=== PATIENT | female | born 1955 | race Caucasian/White ===

== ENCOUNTER 2021-09-14 06:35 | Emergency (ER) | payer MEDICARE, SELFPAY ==
[2021-09-14] VITALS (7 sets, daily range): BP systolic 116–143; BP diastolic 61–77; PULSE 70–127; RESP 16–27; TEMP 37; O2SAT 93–96; BMI 46.8
--- NOTE | 2021-09-14 06:44 | DI.RAD.S_ITS ---
PROCEDURE: XR CHEST 1V INDICATIONS: chest pain TECHNIQUE: One view of the chest was acquired. COMPARISON: None. FINDINGS: Surgical changes and devices: None. Lungs and pleura: Lungs are clear. No pleural effusions or pneumothorax. Mediastinum: Mediastinal contours appear normal. Heart size is normal. Bones and chest wall: No suspicious bony lesions. Overlying soft tissues appear unremarkable. IMPRESSION: No acute cardiopulmonary abnormality. There is no significant discrepancy when compared to the overnight preliminary report. Dictated by: Eyad Marino M.D. on 09/14/2021 at 7:45 Approved by: Eyad Marino M.D. on 09/14/2021 at 7:47
--- NOTE | 2021-09-14 06:49 | ED_ITS ---
HPI - General Adult <Prisca Newton MD - Last Filed: 10/07/21 18:09> General Chief complaint: Arrhythmia/Palpitations Stated complaint: Afib Time Seen by Provider: 09/14/21 06:40 History of Present Illness HPI narrative: 66-year-old woman with a history of a hypothyroidism, hypertension, depression and a single episode of atrial fibrillation a number of years ago currently on aspirin woke up this evening with palpitations and a fluttery feeling in her chest that was quite frightening but not actually painful. She does not describe pain, diaphoresis or dyspnea. She still is somewhat anxious with a fluttery feeling. She states that she has not recently had fever, cough, chills, recent COVID infection, change to headaches, lower extremity edema, abdo rito pain, vomiting or diarrhea. Related Data Allergies Allergy/AdvReac Type Severity Reaction Status Date / Time adhesive tape Allergy Verified 09/14/21 07:00 latex Allergy Verified 09/14/21 07:00 oxycodone [From OxyContin] Allergy Verified 09/14/21 07:00 Penicillins Allergy Verified 09/14/21 07:00 Review of Systems <Prisca Newton MD - Last Filed: 10/07/21 18:09> Review of Systems Narrative: Remainder of complete review of systems is otherwise unremarkable except for that included in the HPI. Patient History <Prisca Newton MD - Last Filed: 10/07/21 18:09> Medical History (Updated 09/29/21 @ 00:00 by ) Depression Hypertension Paroxysmal A-fib Social History Smoking Status: Former smoker Exam <Prisca Newton MD - Last Filed: 10/07/21 18:09> Initial Vital Signs Initial Vital Signs: Vital Signs Pulse Rate 110 H 09/14/21 06:39 Respiratory Rate 16 09/14/21 06:39 Blood Pressure 143/77 H 09/14/21 06:39 Pulse Oximetry 96 09/14/21 06:39 General: Healthy appearing, anxious but in no acute distress. Able to give a complete and coherent history. Well-nourished well-developed HEENT: Moist mucous membranes, normal sclera with reactive pupils, Neck: No JVD, supple Respiratory: Lungs are clear to auscultation, no wheezing no rales no rhonchi. Full and symmetrical air movement Cardiac: Rapid and irregular but no murmurs no bruits Abdomen: Soft, nontender, good bowel tones, no flank pain Skin: Warm and dry, no rashes Neurologic: Grossly neurologically intact with no obvious asymmetries or abnormalities Extremities: No trauma, well perfused, no lower extremity edema Psych: Cooperative, appropriate insight and affect <Evita Oglesby DO - Last Filed: 09/14/21 10:16> Initial Vital Signs Initial Vital Signs: Vital Signs Pulse Rate 110 H 09/14/21 06:39 Respiratory Rate 16 09/14/21 06:39 Blood Pressure 143/77 H 09/14/21 06:39 Pulse Oximetry 96 09/14/21 06:39 Scores <Prisca Newton MD - Last Filed: 10/07/21 18:09> CHADS-VASc CHADS-VASc Score: 2 <Evita Oglesby DO - Last Filed: 09/14/21 10:16> CHADS-VASc Congestive heart failure: no Hypertension: no Age 75 years or older: no Diabetes mellitus: no Stroke, TIA, or TE: no Vascular disease: no Age 65 to 74 years: yes Sex category (female): Female CHADS-VASc Score: 2 Course <Prisca Newton MD - Last Filed: 10/07/21 18:09> Orders Ordered: Discontinued Medications Diltiazem HCl (Diltiazem 5 Mg/Ml Sdv) 20 mg IV NOW ONE Stop: 09/14/21 06:47 Last Admin: 09/14/21 08:38 Dose: Not Given Documented By: IVAN DILTIAZEM (Diltiazem 125 Mg/125 Ml-D5w) 125 mg in 125 mls @ 5 mls/hr IV TITRATE [facility]; Protocol Last Admin: 09/14/21 08:38 Dose: Not Given Documented By: IVAN neither med was given Vital Signs Vital signs: Vital Signs - 8 hr 09/14/21 07:00 09/14/21 06:39 09/14/21 06:39 Temperature 98.6 F Pulse Rate 127 H 110 H Respiratory Rate 23 16 Blood Pressure 143/77 H 143/77 H Pulse Oximetry 94 96 Oxygen Delivery Method Room Air 09/14/21 07:23 09/14/21 07:30 09/14/21 07:31 Temperature Pulse Rate 73 71 Respiratory Rate Blood Pressure 119/61 Pulse Oximetry 95 93 Oxygen Delivery Method 09/14/21 07:31 09/14/21 08:00 09/14/21 08:00 Temperature Pulse Rate 72 70 Respiratory Rate 21 Blood Pressure 116/68 Pulse Oximetry 95 Oxygen Delivery Method 09/14/21 08:30 Temperature Pulse Rate 72 Respiratory Rate 27 H Blood Pressure Pulse Oximetry Oxygen Delivery Method <Evita Oglesby DO - Last Filed: 09/14/21 10:16> Orders Ordered: Discontinued Medications Diltiazem HCl (Diltiazem 5 Mg/Ml Sdv) 20 mg IV NOW ONE Stop: 09/14/21 06:47 Last Admin: 09/14/21 08:38 Dose: Not Given Documented By: IVAN DILTIAZEM (Diltiazem 125 Mg/125 Ml-D5w) 125 mg in 125 mls @ 5 mls/hr IV TITRATE [facility]; Protocol Last Admin: 09/14/21 08:38 Dose: Not Given Documented By: IVAN Vital Signs Vital signs: Vital Signs - 8 hr 09/14/21 07:00 09/14/21 06:39 09/14/21 06:39 Temperature 98.6 F Pulse Rate 127 H 110 H Respiratory Rate 23 16 Blood Pressure 143/77 H 143/77 H Pulse Oximetry 94 96 Oxygen Delivery Method Room Air 09/14/21 07:23 09/14/21 07:30 09/14/21 07:31 Temperature Pulse Rate 73 71 Respiratory Rate Blood Pressure 119/61 Pulse Oximetry 95 93 Oxygen Delivery Method 09/14/21 07:31 09/14/21 08:00 09/14/21 08:00 Temperature Pulse Rate 72 70 Respiratory Rate 21 Blood Pressure 116/68 Pulse Oximetry 95 Oxygen Delivery Method 09/14/21 08:30 Temperature Pulse Rate 72 Respiratory Rate 27 H Blood Pressure Pulse Oximetry Oxygen Delivery Method Medical Decision Making <Prisca Newton MD - Last Filed: 10/07/21 18:09> Lab Data Result diagrams: 09/14/21 06:45 09/14/21 06:45 Labs: Lab Results 09/14/21 09/14/21 09/14/21 Range/Units 06:44 06:45 06:45 WBC 7.8 (4.5-11.0) X10^3/uL RBC 4.85 (4.0-5.2) X10^6/uL Hgb 14.4 (12.0-16.0) g/dL Hct 42.8 (36-46) % MCV 88.1 (80-100) fL MCH 29.7 (26-34) PG MCHC 33.7 (30-36) % RDW 13.9 (11.6-14.8) % Plt Count 248 (150-400) X10^3/uL Neut % (Auto) 68.5 (50-75) % Lymph % (Auto) 18.8 L (25-40) % [place] % (Auto) 5.6 (3-14) % Eos % (Auto) 6.3 H (2-4) % Baso % (Auto) 0.8 (0-2) % Neut # (Auto) 5300 (6859-9616) /uL Lymph # (Auto) 1500 (2879-2032) /uL [place] # (Auto) 400 (0-900) /uL Eos # (Auto) 500 H (0-450) /uL Baso # (Auto) 100 (0-100) /uL D-Dimer (<230) ng/mL Sodium 140 (137-145) mmol/L Potassium 3.4 (3.4-5.1) mmol/L Chloride 104 (98-107) mmol/L Carbon Dioxide 26 (22-32) mmol/L BUN 18 H (7-17) mg/dL Creatinine 0.68 (0.52-1.04) mg/dL Estimated GFR > 60 (>60) mL/min BUN/Creatinine Ratio 26.5 H (6-22) Glucose 147 H (80-110) mg/dL Calcium 9.5 (8.4-10.2) mg/dL Magnesium (1.6-2.3) mg/dL Total Bilirubin 0.4 (0.2-1.3) mg/dL AST 27 (14-36) IU/L ALT 18 (<35) IU/L Alkaline Phosphatase 61 (38-126) U/L Troponin I (0.01-0.034) ng/mL NT-Pro-B Natriuret Pep (<125) pg/mL Total Protein 6.9 (6.3-8.2) g/dL Albumin 4.1 (3.5-5.0) g/dL Globulin 2.8 (1.7-4.1) g/dL Albumin/Globulin Ratio 1.5 (1.0-2.8) TSH (0.47-4.68) uIU/mL Urine Color Urine Appearance Urine pH (4.5-8.0) Ur Specific [place] (1.000-1.035) Urine Protein (Negative) Urine Glucose (UA) (Negative) g/dL Urine Ketones (NEGATIVE) Urine Occult Blood (Negative) Urine Nitrate (Negative) Urine Bilirubin (NEGATIVE) Urine Urobilinogen (0.2) E.U./dL Ur Leukocyte Esterase (NEGATIVE) Urine RBC (0-5/HPF) Urine WBC (0-5/HPF) Ur Squamous Epith Cells (0-5/HPF) Urine Bacteria (None) Ur Culture Indicated? SARS-CoV-2 (PCR) Negative (Negative) 09/14/21 09/14/21 09/14/21 Range/Units 06:45 06:45 06:45 WBC (4.5-11.0) X10^3/uL RBC (4.0-5.2) X10^6/uL Hgb (12.0-16.0) g/dL Hct (36-46) % MCV (80-100) fL MCH (26-34) PG MCHC (30-36) % RDW (11.6-14.8) % Plt Count (150-400) X10^3/uL Neut % (Auto) (50-75) % Lymph % (Auto) (25-40) % [place] % (Auto) (3-14) % Eos % (Auto) (2-4) % Baso % (Auto) (0-2) % Neut # (Auto) (3701-0722) /uL Lymph # (Auto) (0333-5252) /uL [place] # (Auto) (0-900) /uL Eos # (Auto) (0-450) /uL Baso # (Auto) (0-100) /uL D-Dimer 217 (<230) ng/mL Sodium (137-145) mmol/L Potassium (3.4-5.1) mmol/L Chloride (98-107) mmol/L Carbon Dioxide (22-32) mmol/L BUN (7-17) mg/dL Creatinine (0.52-1.04) mg/dL Estimated GFR (>60) mL/min BUN/Creatinine Ratio (6-22) Glucose (80-110) mg/dL Calcium (8.4-10.2) mg/dL Magnesium 1.9 (1.6-2.3) mg/dL Total Bilirubin (0.2-1.3) mg/dL AST (14-36) IU/L ALT (<35) IU/L Alkaline Phosphatase (38-126) U/L Troponin I < 0.012 (0.01-0.034) ng/mL NT-Pro-B Natriuret Pep 89 (<125) pg/mL Total Protein (6.3-8.2) g/dL Albumin (3.5-5.0) g/dL Globulin (1.7-4.1) g/dL Albumin/Globulin Ratio (1.0-2.8) TSH 15.0 H (0.47-4.68) uIU/mL Urine Color Urine Appearance Urine pH (4.5-8.0) Ur Specific [place] (1.000-1.035) Urine Protein (Negative) Urine Glucose (UA) (Negative) g/dL Urine Ketones (NEGATIVE) Urine Occult Blood (Negative) Urine Nitrate (Negative) Urine Bilirubin (NEGATIVE) Urine Urobilinogen (0.2) E.U./dL Ur Leukocyte Esterase (NEGATIVE) Urine RBC (0-5/HPF) Urine WBC (0-5/HPF) Ur Squamous Epith Cells (0-5/HPF) Urine Bacteria (None) Ur Culture Indicated? SARS-CoV-2 (PCR) (Negative) 09/14/21 Range/Units 07:30 WBC (4.5-11.0) X10^3/uL RBC (4.0-5.2) X10^6/uL Hgb (12.0-16.0) g/dL Hct (36-46) % MCV (80-100) fL MCH (26-34) PG MCHC (30-36) % RDW (11.6-14.8) % Plt Count (150-400) X10^3/uL Neut % (Auto) (50-75) % Lymph % (Auto) (25-40) % [place] % (Auto) (3-14) % Eos % (Auto) (2-4) % Baso % (Auto) (0-2) % Neut # (Auto) (8719-9646) /uL Lymph # (Auto) (3133-9565) /uL [place] # (Auto) (0-900) /uL Eos # (Auto) (0-450) /uL Baso # (Auto) (0-100) /uL D-Dimer (<230) ng/mL Sodium (137-145) mmol/L Potassium (3.4-5.1) mmol/L Chloride (98-107) mmol/L Carbon Dioxide (22-32) mmol/L BUN (7-17) mg/dL Creatinine (0.52-1.04) mg/dL Estimated GFR (>60) mL/min BUN/Creatinine Ratio (6-22) Glucose (80-110) mg/dL Calcium (8.4-10.2) mg/dL Magnesium (1.6-2.3) mg/dL Total Bilirubin (0.2-1.3) mg/dL AST (14-36) IU/L ALT (<35) IU/L Alkaline Phosphatase (38-126) U/L Troponin I (0.01-0.034) ng/mL NT-Pro-B Natriuret Pep (<125) pg/mL Total Protein (6.3-8.2) g/dL Albumin (3.5-5.0) g/dL Globulin (1.7-4.1) g/dL Albumin/Globulin Ratio (1.0-2.8) TSH (0.47-4.68) uIU/mL Urine Color Yellow Urine Appearance Clear Urine pH 6.0 (4.5-8.0) Ur Specific [place] <=1.005 (1.000-1.035) Urine Protein Negative (Negative) Urine Glucose (UA) Negative (Negative) g/dL Urine Ketones Negative (NEGATIVE) Urine Occult Blood 3+ H (Negative) Urine Nitrate Negative (Negative) Urine Bilirubin Negative (NEGATIVE) Urine Urobilinogen 0.2 (0.2) E.U./dL Ur Leukocyte Esterase Trace H (NEGATIVE) Urine RBC 1-5/hpf (0-5/HPF) Urine WBC None seen (0-5/HPF) Ur Squamous Epith Cells 1-5 /hpf (0-5/HPF) Urine Bacteria None seen (None) Ur Culture Indicated? Specimen cultured SARS-CoV-2 (PCR) (Negative) ECG Data Interpretation: Atrial fibrillation with rapid ventricular response at a rate of 127 ST depression laterally Leftward axis <Evita Oglesby, DO - Last Filed: 09/14/21 10:16> Lab Data Labs: Lab Results 09/14/21 09/14/21 09/14/21 Range/Units 06:44 06:45 06:45 WBC 7.8 (4.5-11.0) X10^3/uL RBC 4.85 (4.0-5.2) X10^6/uL Hgb 14.4 (12.0-16.0) g/dL Hct 42.8 (36-46) % MCV 88.1 (80-100) fL MCH 29.7 (26-34) PG MCHC 33.7 (30-36) % RDW 13.9 (11.6-14.8) % Plt Count 248 (150-400) X10^3/uL Neut % (Auto) 68.5 (50-75) % Lymph % (Auto) 18.8 L (25-40) % [place] % (Auto) 5.6 (3-14) % Eos % (Auto) 6.3 H (2-4) % Baso % (Auto) 0.8 (0-2) % Neut # (Auto) 5300 (1082-9786) /uL Lymph # (Auto) 1500 (7582-2673) /uL [place] # (Auto) 400 (0-900) /uL Eos # (Auto) 500 H (0-450) /uL Baso # (Auto) 100 (0-100) /uL D-Dimer (<230) ng/mL Sodium 140 (137-145) mmol/L Potassium 3.4 (3.4-5.1) mmol/L Chloride 104 (98-107) mmol/L Carbon Dioxide 26 (22-32) mmol/L BUN 18 H (7-17) mg/dL Creatinine 0.68 (0.52-1.04) mg/dL Estimated GFR > 60 (>60) mL/min BUN/Creatinine Ratio 26.5 H (6-22) Glucose 147 H (80-110) mg/dL Calcium 9.5 (8.4-10.2) mg/dL Magnesium (1.6-2.3) mg/dL Total Bilirubin 0.4 (0.2-1.3) mg/dL AST 27 (14-36) IU/L ALT 18 (<35) IU/L Alkaline Phosphatase 61 (38-126) U/L Troponin I (0.01-0.034) ng/mL NT-Pro-B Natriuret Pep (<125) pg/mL Total Protein 6.9 (6.3-8.2) g/dL Albumin 4.1 (3.5-5.0) g/dL Globulin 2.8 (1.7-4.1) g/dL Albumin/Globulin Ratio 1.5 (1.0-2.8) TSH (0.47-4.68) uIU/mL Urine Color Urine Appearance Urine pH (4.5-8.0) Ur Specific [place] (1.000-1.035) Urine Protein (Negative) Urine Glucose (UA) (Negative) g/dL Urine Ketones (NEGATIVE) Urine Occult Blood (Negative) Urine Nitrate (Negative) Urine Bilirubin (NEGATIVE) Urine Urobilinogen (0.2) E.U./dL Ur Leukocyte Esterase (NEGATIVE) Urine RBC (0-5/HPF) Urine WBC (0-5/HPF) Ur Squamous Epith Cells (0-5/HPF) Urine Bacteria (None) Ur Culture Indicated? SARS-CoV-2 (PCR) Negative (Negative) 09/14/21 09/14/21 09/14/21 Range/Units 06:45 06:45 06:45 WBC (4.5-11.0) X10^3/uL RBC (4.0-5.2) X10^6/uL Hgb (12.0-16.0) g/dL Hct (36-46) % MCV (80-100) fL MCH (26-34) PG MCHC (30-36) % RDW (11.6-14.8) % Plt Count (150-400) X10^3/uL Neut % (Auto) (50-75) % Lymph % (Auto) (25-40) % [place] % (Auto) (3-14) % Eos % (Auto) (2-4) % Baso % (Auto) (0-2) % Neut # (Auto) (9413-4175) /uL Lymph # (Auto) (0289-1877) /uL [place] # (Auto) (0-900) /uL Eos # (Auto) (0-450) /uL Baso # (Auto) (0-100) /uL D-Dimer 217 (<230) ng/mL Sodium (137-145) mmol/L Potassium (3.4-5.1) mmol/L Chloride (98-107) mmol/L Carbon Dioxide (22-32) mmol/L BUN (7-17) mg/dL Creatinine (0.52-1.04) mg/dL Estimated GFR (>60) mL/min BUN/Creatinine Ratio (6-22) Glucose (80-110) mg/dL Calcium (8.4-10.2) mg/dL Magnesium 1.9 (1.6-2.3) mg/dL Total Bilirubin (0.2-1.3) mg/dL AST (14-36) IU/L ALT (<35) IU/L Alkaline Phosphatase (38-126) U/L Troponin I < 0.012 (0.01-0.034) ng/mL NT-Pro-B Natriuret Pep 89 (<125) pg/mL Total Protein (6.3-8.2) g/dL Albumin (3.5-5.0) g/dL Globulin (1.7-4.1) g/dL Albumin/Globulin Ratio (1.0-2.8) TSH 15.0 H (0.47-4.68) uIU/mL Urine Color Urine Appearance Urine pH (4.5-8.0) Ur Specific [place] (1.000-1.035) Urine Protein (Negative) Urine Glucose (UA) (Negative) g/dL Urine Ketones (NEGATIVE) Urine Occult Blood (Negative) Urine Nitrate (Negative) Urine Bilirubin (NEGATIVE) Urine Urobilinogen (0.2) E.U./dL Ur Leukocyte Esterase (NEGATIVE) Urine RBC (0-5/HPF) Urine WBC (0-5/HPF) Ur Squamous Epith Cells (0-5/HPF) Urine Bacteria (None) Ur Culture Indicated? SARS-CoV-2 (PCR) (Negative) 09/14/21 Range/Units 07:30 WBC (4.5-11.0) X10^3/uL RBC (4.0-5.2) X10^6/uL Hgb (12.0-16.0) g/dL Hct (36-46) % MCV (80-100) fL MCH (26-34) PG MCHC (30-36) % RDW (11.6-14.8) % Plt Count (150-400) X10^3/uL Neut % (Auto) (50-75) % Lymph % (Auto) (25-40) % [place] % (Auto) (3-14) % Eos % (Auto) (2-4) % Baso % (Auto) (0-2) % Neut # (Auto) (4204-1946) /uL Lymph # (Auto) (6147-6527) /uL [place] # (Auto) (0-900) /uL Eos # (Auto) (0-450) /uL Baso # (Auto) (0-100) /uL D-Dimer (<230) ng/mL Sodium (137-145) mmol/L Potassium (3.4-5.1) mmol/L Chloride (98-107) mmol/L Carbon Dioxide (22-32) mmol/L BUN (7-17) mg/dL Creatinine (0.52-1.04) mg/dL Estimated GFR (>60) mL/min BUN/Creatinine Ratio (6-22) Glucose (80-110) mg/dL Calcium (8.4-10.2) mg/dL Magnesium (1.6-2.3) mg/dL Total Bilirubin (0.2-1.3) mg/dL AST (14-36) IU/L ALT (<35) IU/L Alkaline Phosphatase (38-126) U/L Troponin I (0.01-0.034) ng/mL NT-Pro-B Natriuret Pep (<125) pg/mL Total Protein (6.3-8.2) g/dL Albumin (3.5-5.0) g/dL Globulin (1.7-4.1) g/dL Albumin/Globulin Ratio (1.0-2.8) TSH (0.47-4.68) uIU/mL Urine Color Yellow Urine Appearance Clear Urine pH 6.0 (4.5-8.0) Ur Specific [place] <=1.005 (1.000-1.035) Urine Protein Negative (Negative) Urine Glucose (UA) Negative (Negative) g/dL Urine Ketones Negative (NEGATIVE) Urine Occult Blood 3+ H (Negative) Urine Nitrate Negative (Negative) Urine Bilirubin Negative (NEGATIVE) Urine Urobilinogen 0.2 (0.2) E.U./dL Ur Leukocyte Esterase Trace H (NEGATIVE) Urine RBC 1-5/hpf (0-5/HPF) Urine WBC None seen (0-5/HPF) Ur Squamous Epith Cells 1-5 /hpf (0-5/HPF) Urine Bacteria None seen (None) Ur Culture Indicated? Specimen cultured SARS-CoV-2 (PCR) (Negative) Imaging Data Chest x-ray: Radiologist's Impression: XRay Report Signed Patient: Marleny Coombs MR#: [id number] : 1955 Acct:[id number] Age/Sex: 66 / F Date of Service: 09/14/21 Loc: ED Accession Number: [id number] ?? Procedure: XR chest 1V Ordering Provider: Prisca Newton MD PROCEDURE:? XR CHEST 1V ? INDICATIONS:? chest pain ? TECHNIQUE:? One view of the chest was acquired.? ? COMPARISON:? None. ? FINDINGS:? ? Surgical changes and devices:? None.? ? Lungs and pleura:? Lungs are clear.? No pleural effusions or pneumothorax.? ? Mediastinum:? Mediastinal contours appear normal.? Heart size is normal.? ? Bones and chest wall:? No suspicious bony lesions.? Overlying soft tissues appea r unremarkable.? ? IMPRESSION:? No acute cardiopulmonary abnormality. ? There is no significant discrepancy when compared to the overnight preliminary report. ? ? Dictated by: Eyad Marino M.D. on 09/14/2021 at 7:45 ? ? ECG Data Interpretation: Atrial fibrillation with rapid ventricular response at a rate of 127 ST depression laterally Leftward axis EKG 2. Normal sinus rhythm rate 70 FL interval 220 QRS [address] changes no T-wave inversions MDM Narrative Medical decision making narrative: Patient was given diltiazem by EMS. She spontaneously converted here in the emergency department. She says she feels much better. Sounds as though she has some paroxysmal atrial fibrillation she takes aspirin daily. TSH is found to be 15. She says she had a thyroidectomy many years ago. This probably can be addressed with her primary care provider. At this time no need for any further workup in the emergency department. I recommend continuing to take aspirin Discharge Plan Departure Patient Disposition: Home Clinical Impression: AF (paroxysmal atrial fibrillation) Instructions: DI for Atrial Fibrillation Activity Restrictions/Additional Instructions: *You have been diagnosed with paroxysmal atrial fibrillation *What to do: At this time please continue to take aspirin it will help prevent stroke. You may need to have evaluation by Cardiology. Fortunately his self converted today. Please return to the emergency department if you should have any chest pain or palpitations. You also need to have her thyroid medication adjusted. Your TSH today is 15 *Continue to take medications as directed Aspirin 81 mg daily *Follow up with your primary care provider in 2-3 days or call [phone] *Return to ER if you should have increasing palpitations chest pain shortness of breath or any new, worsening or concerning symptoms Referrals: Ron Blanton MD [Primary Care Provider] - Visit Report Forms: Patient Portal/API
[2021-09-14 07:00] LABS: Add Manual Diff / Slide Review NO; Basophils Absolute Auto 100 /uL (0-100); Basophils Percent Auto 0.8 % (0-2); Eosinophils Absolute Auto 500 /uL (0-450); Eosinophils Percent Auto 6.3 % (2-4); Hematocrit 42.8 % (36-46); Hemoglobin 14.4 g/dL (12.0-16.0); Lymphocytes Absolute Auto 1500 /uL (1100-4500); Lymphocytes Percent Auto 18.8 % (25-40); Mean Corpuscular HGB Conc 33.7 % (30-36); Mean Corpuscular Hemoglobin 29.7 PG (26-34); Mean Corpuscular Volume 88.1 fL (80-100); Monocytes Absolute Auto 400 /uL (0-900); Monocytes Percent Auto 5.6 % (3-14); Neutrophils Absolute Auto 5300 /uL (1500-7000); Neutrophils Percent Auto 68.5 % (50-75); Platelet Count 248 X10^3/uL (150-400); Red Blood Cell Count 4.85 X10^6/uL (4.0-5.2); Red Cell Distribution Width 13.9 % (11.6-14.8); White Blood Cell Count 7.8 X10^3/uL (4.5-11.0)
[2021-09-14 07:24] LABS: Magnesium 1.9 mg/dL (1.6-2.3)
[2021-09-14 07:25] LABS: Alanine Aminotransferase 18 IU/L (<35); Albumin 4.1 g/dL (3.5-5.0); Albumin Globulin Ratio 1.5 (1.0-2.8); Alkaline Phosphatase 61 U/L (38-126); Aspartate Aminotransferase 27 IU/L (14-36); BUN Creatinine Ratio 26.5 (6-22); Bilirubin Total 0.4 mg/dL (0.2-1.3); Blood Urea Nitrogen 18 mg/dL (7-17); Calcium 9.5 mg/dL (8.4-10.2); Carbon Dioxide 26 mmol/L (22-32); Chloride 104 mmol/L (98-107); Estimated Glomerular Filt Rate > 60 mL/min (>60); Globulin 2.8 g/dL (1.7-4.1); Glucose 147 mg/dL (80-110); HEMOLYSIS 28 (0-50); Potassium 3.4 mmol/L (3.4-5.1); Sodium 140 mmol/L (137-145); Total Protein 6.9 g/dL (6.3-8.2)
--- NOTE | 2021-09-14 07:25 | PC.NURSE ---
pt appears to have converted to NSR at 78. cardizem gtt held at this time. Dr Oglesby made aware.
[2021-09-14 07:27] LABS: D Dimer 217 ng/mL (<230)
[2021-09-14 07:32] LABS: Appearance Urine UA CLEAR; Bilirubin Urine UA NEGATIVE (NEGATIVE); Color Urine UA YELLOW; Glucose Urine UA NEGATIVE (Negative); Ketones Urine UA NEGATIVE (NEGATIVE); Leukocyte Esterase Urine UA TRACE (NEGATIVE); Nitrite Urine UA NEGATIVE (Negative); Occult Blood Urine UA 3+ (Negative); Protein Urine UA NEGATIVE (Negative); Specific Gravity Urine UA <=1.005 (1.000-1.035); Urobilinogen Urine UA 0.2 E.U./dL (0.2)
[2021-09-14 07:34] LABS: COVID19 -Nasal RAPID Negative (Negative)
[2021-09-14 07:36] LABS: NT-proBNP (BNP-Adult 18+) 89 pg/mL (<125); Troponin I < 0.012 ng/mL (0.01-0.034)
[2021-09-14 07:49] LABS: RBC Urine 1-5/HPF (0-5/HPF); WBC Urine None Seen (0-5/HPF)
[2021-09-14 07:50] LABS: Bacteria Urine None Seen; Culture Indicated Urine Specimen Cultured; Squamous Epithelial Cell Urine 1-5 /HPF (0-5/HPF)
--- NOTE | 2021-09-14 08:39 | PC.NURSE ---
pt arrived in Afib. Pt is in SR. pain 03/09. to be discharged.,
== END 2021-09-14 08:45 | disposition home or self-care (01) ==
PROVIDERS: Emergency Medicine; Emergency Provider Emergency Medicine; PCP Internal Medicine
DX: I48.0 Paroxysmal atrial fibrillation (principal); Z79.82 Long term (current) use of aspirin; Z20.822 Contact with and (suspected) exposure to COVID-19; Z86.16 Personal history of COVID-19
CPT/HCPCS: 36415; 71045; 80053; 81001; 83735; 83880; 84443; 84484; 85025; 85379; 87086; 87635; 93005; 93010; 99283; 99284; C9803

== ENCOUNTER → 2023-10-27 12:56 | Outpatient (CLI) | payer OTHER, SELFPAY ==
--- NOTE | 2023-10-27 12:57 | DI.RAD.S_ITS ---
PROCEDURE: XR FINGER RT MIN 2V INDICATIONS: Thumb strain TECHNIQUE: AP hand, 2 views of the 1st finger(s) acquired. COMPARISON: None. FINDINGS: Bones: No fractures or dislocations. No suspicious bony lesions. There is severe osteoarthritic degenerative change involving the DIP joints. There is some mild to moderate osteoarthritic type degenerative change involving the interphalangeal joint of the thumb. Soft tissues: No suspicious soft tissue calcifications. IMPRESSION: 1. No evidence for acute osseous abnormality involving the patient's right thumb. 2. Mild to moderate osteoarthritic type degenerative change involving the right 1st interphalangeal joint. 3. 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 Dictated by: Roberto Givesn M.D. on 10/27/2023 at 16:21 Approved by: Roberto Givens M.D. on 10/27/2023 at 16:25
== END ==
PROVIDERS: PCP Internal Medicine; Referring Provider Nurse Practitioner Family; Visit Provider Nurse Practitioner Family
DX: M79.644 Pain in right finger(s) (principal)
CPT/HCPCS: 73140

== ENCOUNTER 2023-11-17 14:13 | Emergency (ER) | payer OTHER, SELFPAY ==
[2023-11-17] VITALS (41 sets, daily range): BP systolic 88–138; BP diastolic 53–92; PULSE 60–152; RESP 13–32; TEMP 37.2–38.1; O2SAT 84–96; BMI 37.4
--- NOTE | 2023-11-17 14:27 | DI.RAD.S_ITS ---
PROCEDURE: XR CHEST 1V INDICATIONS: suspected sepsis TECHNIQUE: One view of the chest was acquired. COMPARISON: [facility], CR, XR CHEST 1V, 09/14/2021, 6:44. FINDINGS: Surgical changes and devices: None. Lungs and pleura: Lungs are clear. No pleural effusions or pneumothorax. Mediastinum: Mediastinal contours appear normal. Heart size is normal. Bones and chest wall: No suspicious bony lesions. Overlying soft tissues appear unremarkable. IMPRESSION: No acute cardiopulmonary abnormality is seen. Dictated by: Steffi Eldridge M.D. on 11/17/2023 at 15:05 Approved by: Steffi Eldridge M.D. on 11/17/2023 at 15:05
--- NOTE | 2023-11-17 14:56 | EKG_ITS ---
[id number] [place] [address] Test Date: 2023-11-17 Pat Name: Marleny Coombs Department: [facility] Room: Gender: Female Legal Recovery Specialist: SANDRA : 1955 Requested By: Order Number: [id number] Reading MD: Jean Oquendo Measurements Intervals [place] Rate: 163 P: [place]: QRS: -54 QRSD: 90 T: 144 QT: 284 QTc: 467 Interpretive Statements Critical Test Result: High HR Atrial fibrillation with rapid ventricular response Left anterior fascicular block Moderate voltage criteria for LVH, may be normal variant ( R in aVL , [place] product ) Marked ST abnormality, possible inferior subendocardial injury Electronically Signed On 11-17-2023 19:52:33 PDT by Jean Oquendo
[2023-11-17] MEDS: SODIUM CHLORIDE 0.9% 1,000 ML 1000 ML IV ×2 (15:01→16:53)
[2023-11-17] MEDS: ACETAMINOPHEN 325 MG TABLET 975 MG PO (15:03)
[2023-11-17 15:06] LABS: Add Manual Diff / Slide Review NO; Basophils Absolute Auto 0 /uL (0-100); Basophils Percent Auto 0.4 % (0-2); Eosinophils Absolute Auto 300 /uL (0-450); Eosinophils Percent Auto 3.7 % (2-4); Hematocrit 42.5 % (36-46); Hemoglobin 14.3 g/dL (12.0-16.0); Lymphocytes Absolute Auto 600 /uL (1100-4500); Lymphocytes Percent Auto 7.3 % (25-40); Mean Corpuscular HGB Conc 33.5 % (30-36); Mean Corpuscular Hemoglobin 29.4 PG (26-34); Mean Corpuscular Volume 87.7 fL (80-100); Monocytes Absolute Auto 400 /uL (0-900); Monocytes Percent Auto 4.9 % (3-14); Neutrophils Absolute Auto 6800 /uL (1500-7000); Neutrophils Percent Auto 83.7 % (50-75); Platelet Count 270 X10^3/uL (150-400); Red Blood Cell Count 4.85 X10^6/uL (4.0-5.2); Red Cell Distribution Width 14.8 % (11.6-14.8); White Blood Cell Count 8.1 X10^3/uL (4.5-11.0)
--- NOTE | 2023-11-17 15:12 | ED_ITS ---
HPI - SOB/Dyspnea General Chief Complaint: Shortness of Breath/Dyspnea Stated Complaint: coughin, sob, chest px Time Seen by Provider: 11/17/23 15:00 Source: patient Mode of arrival: Wheelchair Limitations: no limitations History of Present Illness HPI Narrative: 68-year-old female with history of atrial fibrillation, hypertension, hypothyroidism, on aspirin and Eliquis who presents with complaint of fevers, cold sweats, cough chest congestion. Patient states she has been coughing so hard it is made her ribs hurt. She denies any shortness of breath. She does not feel that her heart is fast although it is quite CBD on exam. Patient denies any nausea or vomiting. No diarrhea or constipation, no dysuria urgency or frequency. No rash or skin changes. No swelling of extremities. No myalgias. Patient states has a history of atrial fibrillation is on aspirin, Eliquis, digoxin, amlodipine, metoprolol, Imdur and spironolactone. States no prior cardiac stents or ablation, has had a cardiac catheterization in the past. Has had a prior colon resection prefer for bowel and became septic with that. Has had prior ovarian cysts removed and had a ureteral stent at 1 point which was removed as well. No tobacco, no alcohol no recreational drugs. States has a history of allergy to penicillin at developed a rash but has tolerated amoxicillin and other medications, allergy to latex and OxyContin which also causes swelling of her face. Primary care physician is Dr. Blanton at [place], Cardiology is through [facility] in [place]. Related Data Home Medications Medication Instructions Recorded Confirmed amlodipine 5 mg tablet 5 mg PO DAILY 10/27/23 10/27/23 cyclobenzaprine 10 mg tablet mg PO 10/27/23 10/27/23 cyclobenzaprine 5 mg tablet mg PO 10/27/23 10/27/23 digoxin 250 mcg (0.25 mg) tablet 250 mcg PO DAILY 10/27/23 10/27/23 fluoxetine 20 mg capsule 60 mg PO QAM 10/27/23 10/27/23 gabapentin 400 mg capsule 400 mg PO 3XD 10/27/23 10/27/23 isosorbide mononitrate 10 mg tablet 10 mg PO BID 10/27/23 10/27/23 levothyroxine 150 mcg tablet mcg PO 10/27/23 10/27/23 metoprolol succinate 50 mg 50 mg PO DAILY 10/27/23 10/27/23 tablet,extended release 24 hr ropinirole 5 mg tablet 5 mg PO ONCE PM 10/27/23 10/27/23 spironolactone 25 mg tablet mg PO 10/27/23 10/27/23 Previous Rx's Medication Instructions Recorded albuterol sulfate 90 mcg/actuation 2 puff inhalation Q4-6H PRN 11/17/23 aerosol inhaler shortness of breath or wheezing #6.7 grams prednisone 10 mg tablets in a dose See Rx Instructions PO .COMPLEX 11/17/23 pack #21 ea Allergies Allergy/AdvReac Type Severity Reaction Status Date / Time adhesive tape Allergy Verified 10/27/23 12:35 latex Allergy Verified 10/27/23 12:35 oxycodone [From OxyContin] Allergy Verified 10/27/23 12:35 Penicillins Allergy Verified 10/27/23 12:35 Review of Systems Review of Systems ROS Unobtainable: All systems reviewed & are unremarkable except as noted in HPI and below Patient History Medical History Depression Hypertension Paroxysmal A-fib Social History Smoking Status: Former smoker Smoking Status: Former smoker alcohol intake frequency: holidays/special occasions only Substance Use Type: does not use Exam Narrative Exam Narrative: GEN: well nourished female, alert and oriented x 3, patient appears to be in mild distress. HEENT: Atraumatic, pupils are equal round reactive to light, extraocular movements are intact, nares some mild rhinorrhea, there is no conjunctival pallor. Throat is clear without any exudates, erythema, tonsillar enlargement or uvular deviation HEART: Irregularly irregular and tachycardic rate and rhythm without murmur, clicks, rubs. No carotid bruits, pulses are equal in upper and lower extremities. No edema bilateral lower extremities. LUNGS:Lungs patient has wheeze bilateral bases anterior and posteriorly, no rales, crackles, chest moves symmetrically, no tachypnea or accessory muscle use. Patient has persistent dry cough in the room. ABD:bowel sounds normal, soft, non-tender, no guarding, rebound, rigidity, no masses noted, no hepatosplenomegaly :No CVA tenderness MSCL: Non-tender, no muscle atrophy, muscles strength 5/5 upper and lower extremities, full range of motion NEURO:CN 2-12 intact, sensation normal. SKIN: No rash, erythema or other skin changes noted Initial Vital Signs Initial Vital Signs: Vital Signs Temperature 100.6 F H 11/17/23 14:16 Pulse Rate 60 11/17/23 14:16 Respiratory Rate 22 11/17/23 14:16 Blood Pressure 95/57 L 11/17/23 14:16 Pulse Oximetry 96 11/17/23 14:16 Oxygen Delivery Method Room Air 11/17/23 14:16 Course Orders Ordered: ED Orders 11/17/23 14:25 Respiratory Panel (Film Array) Stat 11/17/23 14:27 XR chest 1V Stat EKG-12 Lead Stat RT Consult Eval and Treat NOW 11/17/23 14:50 BNP [NT-proBNP (BNP-Adult 18+)] Stat Complete Blood Count AUTO DIFF Stat Comprehensive Metabolic Panel Stat Lactate (Lactic Acid) Stat Lipase Stat PTT Partial Thromboplastin Ke Stat Procalcitonin Stat Prothrombin Time INR Stat Troponin & CK Cardiac Panel Stat 11/17/23 15:01 Blood Culture Stat 11/17/23 16:39 EKG-12 Lead Stat 11/17/23 17:35 Urine Culture Stat 11/17/23 17:38 Urine Microscopic Stat Discontinued Medications Acetaminophen (Acetaminophen 325 Mg Tablet) 975 mg PO NOW ONE Stop: 11/17/23 15:01 Last Admin: 11/17/23 15:03 Dose: 975 mg Documented By: PATTI Albuterol/Ipratropium (Albuterol/Ipratropium 3 Ml Ampul) 3 ml INH NOW ONE Stop: 11/17/23 15:12 Sodium Chloride (Normal Saline 0.9%) 1,000 mls @ 1,000 mls/hr IV BOLUS ONE Stop: 11/17/23 15:26 Last Infusion: 11/17/23 16:15 Dose: Infused Documented By: Admin: 11/17/23 15:01 Dose: 1,000 mls/hr Documented By: PATTI Ceftriaxone Sodium 1,000 mg/ (Sodium Chloride) 100 mls @ 200 mls/hr IV NOW ONE Stop: 11/17/23 15:13 Last Infusion: 11/17/23 16:15 Dose: Infused Documented By: Admin: 11/17/23 15:25 Dose: 200 mls/hr Documented By: MICHELLE Sodium Chloride (Normal Saline 0.9%) 1,000 mls @ 1,000 mls/hr IV BOLUS ONE Stop: 11/17/23 17:39 Last Infusion: 11/17/23 17:56 Dose: Infused Documented By: [facility] Admin: 11/17/23 16:53 Dose: 1,000 mls/hr Documented By: MICHELLE Methylprednisolone (Methylprednisolone 125 Mg/2 Ml Vial) 125 mg IV NOW ONE Stop: 11/17/23 15:21 Last Admin: 11/17/23 15:38 Dose: 125 mg Documented By: MICHELLE Metoprolol Succinate (Metoprolol Er 25 Mg Tablet) 25 mg PO NOW ONE Stop: 11/17/23 16:41 Last Admin: 11/17/23 16:53 Dose: 25 mg Documented By: MICHELLE Metoprolol Tartrate (Metoprolol Tartrate 5 Mg/5 Ml Inj) 5 mg IV Q5M HENRIETTA Stop: 11/17/23 15:26 Last Admin: 11/17/23 16:27 Dose: 5 mg Documented By: Admin: 11/17/23 16:10 Dose: 5 mg Documented By: Admin: 11/17/23 15:26 Dose: 5 mg Documented By: MICHELLE Ondansetron HCl (Ondansetron 4 Mg/2 Ml Inj) 4 mg IV NOW PRN PRN Reason: Nausea And Vomiting Ondansetron HCl (Ondansetron 4 Mg Odt) 4 mg SL NOW PRN PRN Reason: Nausea And Vomiting Vital Signs Vital signs: Vital Signs - 8 hr 11/17/23 14:16 11/17/23 14:40 11/17/23 14:41 Temperature 100.6 F H Pulse Rate 60 84 Respiratory Rate 22 Blood Pressure 95/57 L Pulse Oximetry 96 84 L 92 Oxygen Delivery Method Room Air 11/17/23 14:41 11/17/23 15:00 11/17/23 15:00 Temperature Pulse Rate 152 H Respiratory Rate 24 Blood Pressure 138/92 H 111/68 Pulse Oximetry 92 Oxygen Delivery Method 11/17/23 15:28 11/17/23 15:30 11/17/23 15:30 Temperature Pulse Rate 149 H 145 H Respiratory Rate 24 16 Blood Pressure 121/73 Pulse Oximetry 93 93 Oxygen Delivery Method 11/17/23 15:35 11/17/23 15:35 11/17/23 15:40 Temperature Pulse Rate 145 H 139 H Respiratory Rate 19 13 Blood Pressure 112/71 Pulse Oximetry 92 90 L Oxygen Delivery Method 11/17/23 15:40 11/17/23 15:46 11/17/23 15:46 Temperature Pulse Rate 75 Respiratory Rate 19 Blood Pressure 108/74 127/61 Pulse Oximetry 91 Oxygen Delivery Method 11/17/23 15:50 11/17/23 15:50 11/17/23 15:55 Temperature Pulse Rate 72 Respiratory Rate 20 Blood Pressure 126/61 133/63 Pulse Oximetry 90 L Oxygen Delivery Method 11/17/23 15:55 11/17/23 16:00 11/17/23 16:00 Temperature Pulse Rate 72 140 H Respiratory Rate 13 14 Blood Pressure 120/53 L Pulse Oximetry 94 Oxygen Delivery Method 11/17/23 16:05 11/17/23 16:05 11/17/23 16:10 Temperature Pulse Rate 140 H 142 H Respiratory Rate 25 H 20 Blood Pressure 138/69 Pulse Oximetry 91 90 L Oxygen Delivery Method 11/17/23 16:10 11/17/23 16:14 11/17/23 16:15 Temperature 99.0 F Pulse Rate 136 H Respiratory Rate 26 H Blood Pressure 138/68 Pulse Oximetry 93 Oxygen Delivery Method 11/17/23 16:15 11/17/23 16:20 11/17/23 16:20 Temperature Pulse Rate 131 H Respiratory Rate 21 Blood Pressure 107/55 L 117/66 Pulse Oximetry 93 Oxygen Delivery Method 11/17/23 16:25 11/17/23 16:25 11/17/23 16:30 Temperature Pulse Rate 96 H 134 H Respiratory Rate 22 32 H Blood Pressure 116/66 Pulse Oximetry 90 L 92 Oxygen Delivery Method 11/17/23 16:30 11/17/23 16:35 11/17/23 16:36 Temperature Pulse Rate 63 62 Respiratory Rate 20 21 Blood Pressure 125/79 Pulse Oximetry 90 L 91 Oxygen Delivery Method 11/17/23 16:36 11/17/23 16:40 11/17/23 16:40 Temperature Pulse Rate 63 Respiratory Rate 21 Blood Pressure 125/66 109/63 Pulse Oximetry 91 Oxygen Delivery Method 11/17/23 16:45 11/17/23 16:45 11/17/23 16:50 Temperature Pulse Rate 64 Respiratory Rate 20 Blood Pressure 107/60 118/62 Pulse Oximetry 92 Oxygen Delivery Method 11/17/23 16:53 11/17/23 16:55 11/17/23 16:55 Temperature Pulse Rate 64 63 Respiratory Rate 24 Blood Pressure 118/62 88/56 L Pulse Oximetry 91 Oxygen Delivery Method 11/17/23 16:57 11/17/23 16:57 11/17/23 17:00 Temperature Pulse Rate 65 Respiratory Rate 20 Blood Pressure 109/56 L 114/55 L Pulse Oximetry 93 Oxygen Delivery Method 11/17/23 17:05 11/17/23 17:05 11/17/23 17:10 Temperature Pulse Rate 65 Respiratory Rate 23 Blood Pressure 118/58 L 117/82 Pulse Oximetry 91 Oxygen Delivery Method 11/17/23 17:15 11/17/23 17:15 11/17/23 17:20 Temperature Pulse Rate 66 67 Respiratory Rate 22 22 Blood Pressure 121/80 Pulse Oximetry 92 91 Oxygen Delivery Method 11/17/23 17:20 11/17/23 17:30 11/17/23 17:33 Temperature Pulse Rate 72 102 H Respiratory Rate Blood Pressure 111/55 L Pulse Oximetry 92 Oxygen Delivery Method 11/17/23 17:35 11/17/23 17:35 11/17/23 17:40 Temperature Pulse Rate 72 129 H Respiratory Rate 23 26 H Blood Pressure 114/60 Pulse Oximetry 92 92 Oxygen Delivery Method 11/17/23 17:40 11/17/23 17:45 11/17/23 17:50 Temperature Pulse Rate 68 131 H Respiratory Rate 25 H 27 H Blood Pressure 120/58 L Pulse Oximetry 92 91 Oxygen Delivery Method 11/17/23 17:55 11/17/23 18:00 11/17/23 18:00 Temperature Pulse Rate 134 H 71 Respiratory Rate 25 H 26 H Blood Pressure 119/56 L Pulse Oximetry 91 90 L Oxygen Delivery Method 11/17/23 18:05 Temperature Pulse Rate 74 Respiratory Rate 28 H Blood Pressure Pulse Oximetry 96 Oxygen Delivery Method MDM - SOB/Dyspnea Lab Data 11/17/23 14:50 11/17/23 14:50 Labs: Lab Results 11/17/23 11/17/23 Range/Units 14:25 14:50 WBC 8.1 (4.5-11.0) X10^3/uL RBC 4.85 (4.0-5.2) X10^6/uL Hgb 14.3 (12.0-16.0) g/dL Hct 42.5 (36-46) % MCV 87.7 (80-100) fL MCH 29.4 (26-34) PG MCHC 33.5 (30-36) % RDW 14.8 (11.6-14.8) % Plt Count 270 (150-400) X10^3/uL Neut % (Auto) 83.7 H (50-75) % Lymph % (Auto) 7.3 L (25-40) % Gilmer % (Auto) 4.9 (3-14) % Eos % (Auto) 3.7 (2-4) % Baso % (Auto) 0.4 (0-2) % Neut # (Auto) 6800 (8033-5579) /uL Lymph # (Auto) 600 L (7526-6714) /uL Gilmer # (Auto) 400 (0-900) /uL Eos # (Auto) 300 (0-450) /uL Baso # (Auto) 0 (0-100) /uL PT 12.3 (9.4-12.5) SECONDS INR 1.1 (0.9-1.3) APTT 31 (25.1-36.5) SECONDS Sodium 136 L (137-145) mmol/L Potassium 3.6 (3.4-5.1) mmol/L Chloride 104 (98-107) mmol/L Carbon Dioxide 21 L (22-32) mmol/L BUN 12 (7-17) mg/dL Creatinine 0.68 (0.52-1.04) mg/dL Estimated GFR > 60 (>60) mL/min BUN/Creatinine Ratio 17.6 (6-22) Glucose 99 (80-110) mg/dL Lactate 0.7 (0.7-2.1) mmol/L Calcium 9.0 (8.4-10.2) mg/dL Total Bilirubin 0.6 (0.2-1.3) mg/dL AST 22 (14-36) IU/L ALT 16 (<35) IU/L Alkaline Phosphatase 74 (38-126) U/L Total Creatine Kinase 48 (30-135) U/L Troponin I < 0.012 (0.01-0.034) ng/mL NT-Pro-B Natriuret Pep 781 H (<125) pg/mL Total Protein 7.4 (6.3-8.2) g/dL Albumin 4.2 (3.5-5.0) g/dL Globulin 3.2 (1.7-4.1) g/dL Albumin/Globulin Ratio 1.3 (1.0-2.8) Lipase 57 (23-300) U/L Procalcitonin 0.079 (<0.5) ng/mL Chlamy pneumoniae PCR Not detected (Not Detect) Adenovirus (PCR) Not detected (Not Detect) B. pertussis DNA (PCR) Not detected (Not Detect) B.parapertussis DNA PCR Not detected (Not Detecte) Coronavirus OC43 (PCR) Not detected (Not Detect) Coronavirus HKU1 (PCR) Not detected (Not Detect) Coronavirus 229E (PCR) Not detected (Not Detect) SARS-CoV-2 (PCR) Not detected (Not Detecte) Coronavirus NL63 (PCR) Not detected (Not Detect) Human Metapneumovir PCR Not detected (Not Detect) Influenza Type A (PCR) Not detected (Not Detect) Influenza Type B (PCR) Not detected (Not Detect) M. pneumoniae (PCR) Not detected (Not Detect) Parainfluenza 1 (PCR) Not detected (Not Detect) Parainfluenza 2 (PCR) Not detected (Not Detect) Parainfluenza 3 (PCR) Not detected (Not Detect) Parainfluenza 4 (PCR) Not detected (Not Detect) RSV (PCR) Not detected (Not Detect) Entero/Rhino (PCR) Detected H (Not Detect) Urine Dip Bedside Urine Glucose Negative Bedside Urine Bilirubin - Negative Bedside Urine Ketone - Negative Urine Specific [place] 1.015 Bedside Urine Occult Blood +++ Bedside Urine pH 6.5 Bedside Urine Protein - Negative Bedside Urine Urobilinogen - Negative Bedside Urine Nitrite - Negative Bedside Urine Leukocytes +/- 15 Esterase Imaging Data Chest x-ray: Radiologist's Impression: Marleny Coombs??68??F??1955 ? Allergy/Adv: adhesive tape, latex, oxycodone, Penicillins (More??) Close Chest X-Ray (Signed) Steffi Eldridge - 11/17/23 Finger X-Ray (Signed) Roberto Givens - 10/27/23 Chest X-Ray (Signed) Eyad Marino - 09/14/21 Launch?Image [address] [address] XRay Report Signed Patient: Marleny Coombs MR#: [id number] : 1955 Acct:[id number] Age/Sex: 68 / F Date of Service: 11/17/23 Loc: ED Accession Number: [id number] Procedure: XR chest 1V Ordering Provider: Lynda Tabares D.O. PROCEDURE: XR CHEST 1V INDICATIONS: suspected sepsis TECHNIQUE: One view of the chest was acquired. COMPARISON: [facility], , XR CHEST 1V, 09/14/2021, 6:44. FINDINGS: Surgical changes and devices: None. Lungs and pleura: Lungs are clear. No pleural effusions or pneumothorax. Mediastinum: Mediastinal contours appear normal. Heart size is normal. Bones and chest wall: No suspicious bony lesions. Overlying soft tissues appear unremarkable. IMPRESSION: No acute cardiopulmonary abnormality is seen. Dictated by: Steffi Eldridge M.D. on 11/17/2023 at 15:05 Approved by: Steffi Eldridge M.D. on 11/17/2023 at 15:05 ECG Data Attestation: I personally reviewed and interpreted this ECG as follows: Prior ECG tracings: available for review Interpretation: AFib with RVR rate of 163 QRS of 90 QTC 467, some depression lateral leads no elevation. Patient has prior 09/14/2021 which appears similar. EKG shows sinus rhythm rate of 64, CO 198 QRS 86 QTC of 408. [facility] Narrative Medical decision making narrative: 68-year-old female history of atrial fibrillation presents with sepsis criteria. Patient received a L bolus, Tylenol for her fever, hypotension was improving she is tachycardic AFib RVR. Does have some occasional slowing. Patient is also wheezy so going to receive a DuoNeb which will make her heart rate increase. We will likely have to give some doses of metoprolol. Suspect her likely infection is the cause of her AFib RVR currently although other causes are in the differential as well. Labs white count 8.1 hemoglobin of 14 platelets of 270 predominance of neutrophils no bandemia. Coags are negative sodium is 136 potassium 3.6, chloride 104 CO2 is 21 BUN 12 creatinine 0.68 lactate 0.7 glucose is 99 LFTs are negative. Procalcitonin 0.079. Troponin is less than 0.012, BNP is 781. EKG shows AFib RVR depression lateral leads Chest x-ray negative Respiratory panel respiratory panel positive for entero/rhinovirus. Recheck patient is beats has a resolved, she has a cough but it is much improved. Has not had any hypoxia, heart rates improved with. Also improved with some IV metoprolol. Patient is repeat shows sinus rhythm, patient did have some additional episodes of AFib but has been overall rate control after some doses metoprolol and given her oral metoprolol dose from home. Patient did not take any of her morning medications for her atrial fibrillation. Fever has improved patient is otherwise well-appearing her lungs have cleared after recheck after DuoNeb suspect she was having some reactive airway and response to her recent viral infection. Patient is felt appropriate for discharge home. She would like to return home. Asked her to take her home medications this evening. Discharge Plan Departure Patient Disposition: Home Clinical Impression: Reactive airway disease, Rhinovirus infection, Atrial fibrillation with rapid ventricular response Instructions: DI for Reactive Airway Disease-Adult Activity Restrictions/Additional Instructions: Please follow up for recheck. You were found him today heart rate has bounced up and down intermittently sometimes fast but starting to improve with some of your home medications. You do have a viral illness called entero/rhinovirus this is a common illness that can cause fevers cold cough and congestion. It appears to be causing some reactive airway or bronchitis. [facility] Take steroids daily until gone. Use inhaler 2 puffs every 4 hours as needed for any wheezing or tightness in her chest. Please return for persistent fevers that do not respond to Tylenol, increasing chest pain or shortness of breath, new chest pain, persistently elevated heart rate, new swelling of your extremities, lightheadedness or passing out or other new or concerning changes. Prescriptions: New prednisone 10 mg tablets,dose pack See Rx Instructions .ROUTE .COMPLEX Qty: 21 0RF Rx Instructions: orally per package directions albuterol sulfate 90 mcg/actuation HFA aerosol inhaler 2 puff inhalation Q4-6H PRN (Reason: shortness of breath or wheezing) Qty: 6.7 0RF No Action cyclobenzaprine 10 mg tablet PO cyclobenzaprine 5 mg tablet PO isosorbide mononitrate 10 mg tablet 10 mg PO BID digoxin 250 mcg (0.25 mg) tablet 250 mcg PO DAILY fluoxetine 20 mg capsule 60 mg PO QAM ropinirole 5 mg tablet 5 mg PO ONCE PM levothyroxine 150 mcg tablet PO spironolactone 25 mg tablet PO amlodipine 5 mg tablet 5 mg PO DAILY metoprolol succinate 50 mg tablet extended release 24 hr 50 mg PO DAILY gabapentin 400 mg capsule 400 mg PO 3XD Referrals: Ron Blanton MD [Primary Care Provider] - Stand Alone Forms: Patient Portal/API
[2023-11-17 15:13] LABS: INR 1.1 (0.9-1.3); Prothrombin Time 12.3 SECONDS (9.4-12.5)
[2023-11-17 15:16] LABS: PTT Partial Thromboplastin Tim 31 SECONDS (25.1-36.5)
[2023-11-17 15:18] LABS: Lactate (Lactic Acid) 0.7 mmol/L (0.7-2.1)
[2023-11-17 15:19] LABS: Alanine Aminotransferase 16 IU/L (<35); Albumin 4.2 g/dL (3.5-5.0); Albumin Globulin Ratio 1.3 (1.0-2.8); Alkaline Phosphatase 74 U/L (38-126); Aspartate Aminotransferase 22 IU/L (14-36); BUN Creatinine Ratio 17.6 (6-22); Bilirubin Total 0.6 mg/dL (0.2-1.3); Blood Urea Nitrogen 12 mg/dL (7-17); Carbon Dioxide 21 mmol/L (22-32); Chloride 104 mmol/L (98-107); Estimated Glomerular Filt Rate > 60 mL/min (>60); Globulin 3.2 g/dL (1.7-4.1); Glucose 99 mg/dL (80-110); HEMOLYSIS < 15 (0-50); Lipase 57 U/L (23-300); Potassium 3.6 mmol/L (3.4-5.1); Sodium 136 mmol/L (137-145); Total Protein 7.4 g/dL (6.3-8.2)
[2023-11-17 15:22] LABS: Adenovirus Not Detected (Not Detect); B. parapertussis Not Detected (Not Detecte); Bordetella pertussis Not Detected (Not Detect); Chlamydophila pneumoniae Not Detected (Not Detect); Coronavirus 229E Not Detected (Not Detect); Coronavirus HKU1 Not Detected (Not Detect); Coronavirus NL 63 Not Detected (Not Detect); Coronavirus OC43 Not Detected (Not Detect); Human Metapneumovirus Not Detected (Not Detect); Human Rhinovirus/Enterovirus Detected (Not Detect); Influenza A Not Detected (Not Detect); Influenza B Not Detected (Not Detect); Mycoplasma pneumoniae Not Detected (Not Detect); Parainfluenza Virus 1 Not Detected (Not Detect); Parainfluenza Virus 2 Not Detected (Not Detect); Parainfluenza Virus 3 Not Detected (Not Detect); Parainfluenza Virus 4 Not Detected (Not Detect); Respiratory Syncytial Virus Not Detected (Not Detect); SARS- CoV-2 Not Detected (Not Detecte)
[2023-11-17] MEDS: cefTRIAXone 1,000 MG in SODIUM CHLORIDE 0.9% 100 ML 200 MG IV (15:25)
[2023-11-17] MEDS: METOPROLOL TARTRATE 5 MG/5 ML INJ IV ×3 (15:26→16:27)
[2023-11-17 15:36] LABS: Procalcitonin 0.079 ng/mL (<0.5)
[2023-11-17] MEDS: methylPREDNISolone 125 MG/2 ML VIAL IV (15:38)
--- NOTE | 2023-11-17 16:44 | EKG_ITS ---
[address] [address] Test Date: 2023-11-17 Pat Name: Marleny Coombs Department: [facility] Room: Gender: Female [employer]: SANDRA : 1955 Requested By: Order Number: [id number] Reading MD: Jean Oquendo Measurements Intervals [place] Rate: 64 P: 18 VT: 198 QRS: -33 QRSD: 86 T: -2 QT: 396 QTc: 408 Interpretive Statements Normal sinus rhythm Left axis deviation Electronically Signed On 11-17-2023 19:52:40 PDT by Jean Oquendo
[2023-11-17] MEDS: METOPROLOL ER 25 MG TABLET PO (16:53)
[2023-11-17 16:57] LABS: Creatine Kinase 48 U/L (30-135)
[2023-11-17 17:10] LABS: NT-proBNP (BNP-Adult 18+) 781 pg/mL (<125); Troponin I < 0.012 ng/mL (0.01-0.034)
[2023-11-17 21:03] LABS: Bacteria Urine Occasional (0-1); Culture Indicated Urine Cult Not Indicated; RBC Urine 0-1/HPF (0-5/HPF); Squamous Epithelial Cell Urine 0-1 /HPF (0-5/HPF); Urine Volume 10mL (spun); WBC Urine 0-1/HPF (0-5/HPF)
== END 2023-11-17 18:10 | disposition home or self-care (01) ==
PROVIDERS: Emergency Provider Emergency Medicine; PCP Internal Medicine
DX: I48.20 Chronic atrial fibrillation, unspecified (principal); Z79.01 Long term (current) use of anticoagulants; B34.8 Other viral infections of unspecified site; J45.909 Unspecified asthma, uncomplicated; R00.0 Tachycardia, unspecified; I10 Essential (primary) hypertension; E03.9 Hypothyroidism, unspecified; Z79.82 Long term (current) use of aspirin; Z11.52 Encounter for screening for COVID-19
CPT/HCPCS: 36415; 71045; 80053; 81003; 81015; 82550; 83605; 83690; 83880; 84145; 84484; 85025; 85610; 85730; 87040; 87086; 87633; 93005; 96361; 96365; 96375; 99284; J0696; J2919

== ENCOUNTER 2024-12-27 11:32 | Emergency (ER) | payer MEDICARE, SELFPAY ==
[2024-12-27 11:37] VITALS: BP 170/77; PULSE 71; RESP 14; TEMP 36.3; O2SAT 97
--- NOTE | 2024-12-27 13:02 | ED.EXTPRO ---
HPI - Extremity Problem General Chief complaint: Extremity Problem,Nontraumatic Stated complaint: Swollen feet . Left is worse 3 days Time Seen by Provider: 12/27/24 12:45 Source: patient Mode of arrival: Ambulatory History of Present Illness HPI Narrative: Patient complains of left greater than right ankle and foot swelling. She states over the past year she has had left greater than right ankle and foot swelling off and on but in the past 3 days it has worsened. No calf pain. No history of blood clot in the legs but she is on warfarin for history of pulmonary embolism and atrial fibrillation. Denies any history of CHF. She does wear compression stockings. She states she recently was on steroids in the past week. Is not on any diuretics. Knees to toes exposed. Patient denies any chest pain or shortness of breath. Denies any recent long travel immobilization or surgeries. Related Data Home Medications ?Medication ?Instructions ?Recorded ?Confirmed amlodipine 5 mg tablet 5 mg PO DAILY 10/27/23 10/27/23 cyclobenzaprine 10 mg tablet mg PO 10/27/23 10/27/23 cyclobenzaprine 5 mg tablet mg PO 10/27/23 10/27/23 digoxin 250 mcg (0.25 mg) tablet 250 mcg PO DAILY 10/27/23 10/27/23 fluoxetine 20 mg capsule 60 mg PO QAM 10/27/23 10/27/23 gabapentin 400 mg capsule 400 mg PO 3XD 10/27/23 10/27/23 isosorbide mononitrate 10 mg tablet 10 mg PO BID 10/27/23 10/27/23 levothyroxine 150 mcg tablet mcg PO 10/27/23 10/27/23 metoprolol succinate 50 mg 50 mg PO DAILY 10/27/23 10/27/23 tablet,extended release 24 hr ropinirole 5 mg tablet 5 mg PO ONCE PM 10/27/23 10/27/23 spironolactone 25 mg tablet mg PO 10/27/23 10/27/23 Previous Rx's ?Medication ?Instructions ?Recorded albuterol sulfate 90 mcg/actuation 2 puff inhalation Q4-6H PRN 11/17/23 aerosol inhaler shortness of breath or wheezing #6.7 grams prednisone 10 mg tablets in a dose See Rx Instructions PO .COMPLEX 11/17/23 pack #21 ea Allergies Allergy/AdvReac Type Severity Reaction Status Date / Time adhesive tape Allergy Verified 12/27/24 11:37 latex Allergy Verified 12/27/24 11:37 oxycodone (From OxyContin) Allergy Verified 12/27/24 11:37 Penicillins Allergy Verified 12/27/24 11:37 Review of Systems Review of Systems Narrative: GENERAL: Negative chills, fatigue, malaise, fever, sweats. HEENT: Negative sinus pain, ear pain, sore throat RESPIRATORY: Negative dyspnea, cough CARDIOVASCULAR: Negative chest pain, palpitations GASTROINTESTINAL: Negative vomiting, nausea, abdominal pain : Negative dysuria, frequency, hematuria MUSCULOSKELETAL: Negative muscle or bony pain, positive peripheral swelling SKIN: Negative rash, skin lesions NEUROLOGIC: Negative weakness, numbness ROS Unobtainable: All systems reviewed & are unremarkable except as noted in HPI and below Patient History Medical History Depression Hypertension Paroxysmal A-fib Social History Smoking Status: Unknown if ever smoked Smoking Status: Unknown if ever smoked alcohol intake frequency: holidays/special occasions only Exam Narrative Exam Narrative: GENERAL: in no distress, not toxic not dyspneic HEAD: Normocephalic. EYES: Pupils equal round ENT: Mucous membranes moist. NECK: Trachea midline. CARDIOVASCULAR: Regular rate and rhythm RESPIRATORY: Clear to auscultation. Breath sounds equal bilaterally. No wheezes, rales, or rhonchi. GASTROINTESTINAL: Abdomen soft, non-tender BACK: No flank tenderness. EXTREMITIES: No gross deformities. Bilateral knees to toes exposed. There is slightly more edema to the left ankle and foot compared to the right. However feet are warm soft pink. Brisk cap refills light touch intact to feet and toes. Wiggles all toes. Palpable pedal pulses bilaterally., no palpable cords on the calves. Negative Homans test negative Mendes test. No palpable cords behind the knees NEURO: AOx4. Clear speech SKIN: Warm and dry PSYCH: Not anxious, is cooperative Initial Vital Signs Initial Vital Signs: Vital Signs Temperature 97.3 F L 12/27/24 11:37 Pulse Rate 71 12/27/24 11:37 Respiratory Rate 14 12/27/24 11:37 Blood Pressure 170/77 H 12/27/24 11:37 Pulse Oximetry 97 10/30/25 11:37 Oxygen Delivery Method Room Air 12/27/24 11:37 Course Orders Ordered: ED Orders 12/27/24 13:09 US periph venous low extrem bi Stat 12/27/24 15:12 CBC Auto Diff [Complete Blood Count AUTO DIFF] Stat CMP [Comprehensive Metabolic Panel] Stat PT [Prothrombin Time INR] Stat PTT Partial Thromboplastin Ke Stat Vital Signs Vital signs: Vital Signs - 8 hr 12/27/24 11:37 12/27/24 16:14 Temperature 97.3 F L Pulse Rate 71 67 Respiratory Rate 14 17 Blood Pressure 170/77 H 142/77 H Pulse Oximetry 97 96 Oxygen Delivery Method Room Air MDM - Extremity (Nontraumatic) Lab Data 12/27/24 15:12 12/27/24 15:12 Labs: Lab Results 12/27/24 Range/Units 15:12 WBC 5.9 (4.5-11.0) X10^3/uL RBC 4.32 (4.0-5.2) X10^6/uL Hgb 12.3 (12.0-16.0) g/dL Hct 37.3 (36-46) % MCV 86.3 (80-100) fL MCH 28.5 (26-34) PG MCHC 33.0 (30-36) % RDW 14.8 (11.6-14.8) % Plt Count 274 (150-400) X10^3/uL Neut % (Auto) 66.5 (50-75) % Lymph % (Auto) 22.5 L (25-40) % [place] % (Auto) 6.8 (3-14) % Eos % (Auto) 3.2 (2-4) % Baso % (Auto) 1.0 (0-2) % Neut # (Auto) 3900 (6653-4566) /uL Lymph # (Auto) 1300 (3080-1086) /uL [place] # (Auto) 400 (0-900) /uL Eos # (Auto) 200 (0-450) /uL Baso # (Auto) 100 (0-100) /uL PT 35.3 H (9.4-12.5) SECONDS INR 3.2 H (0.9-1.3) APTT 45 H (25.1-36.5) SECONDS Sodium 137 (137-145) mmol/L Potassium 3.8 (3.4-5.1) mmol/L Chloride 103 (98-107) mmol/L Carbon Dioxide 29 (22-32) mmol/L BUN 14 (7-17) mg/dL Creatinine 0.64 (0.52-1.04) mg/dL Estimated GFR > 60 (>60) mL/min BUN/Creatinine Ratio 21.9 (6-22) Glucose 91 (70-99) mg/dL Calcium 9.5 (8.4-10.2) mg/dL Total Bilirubin 0.6 (0.2-1.3) mg/dL AST 28 (14-36) IU/L ALT 28 (<35) IU/L Alkaline Phosphatase 69 (38-126) U/L Total Protein 7.1 (6.3-8.2) g/dL Albumin 4.2 (3.5-5.0) g/dL Globulin 2.9 (1.7-4.1) g/dL Albumin/Globulin Ratio 1.4 (1.0-2.8) Imaging Data US - DVT: Radiologist's Impression: [place] [address] Ultrasound Report Signed Patient: Marleny Coombs MR#: [id number] : 1955 Acct:[id number] Age/Sex: 69 / F Date of Service: 12/27/24 Loc: ED Accession Number: [id number] Procedure: US periph venous low extrem bi Ordering Provider: Geovanni Suresh MD PROCEDURE: US PERIPH VENOUS LOW EXTREM BI INDICATIONS: PAIN AND SWELLING TECHNIQUE: Real-time imaging, as well as color and pulse Doppler interrogation, were performed of the deep veins of both legs from the inguinal ligament to the popliteal fossa, with documentation of the visualized calf veins. COMPARISON: None. FINDINGS: Right: The common femoral, femoral, popliteal, and the visualized calf veins are normally compressible, and free of intraluminal thrombus. Color and pulse Doppler demonstrate normal phasic intravascular flow. There is normal augmentation response to distal compression maneuver. Left: The common femoral, femoral, popliteal, and the visualized calf veins are normally compressible, and free of intraluminal thrombus. Color and pulse Doppler demonstrate normal phasic intravascular flow. There is normal augmentation response to distal compression maneuver. Left Lin's cyst measuring 5.4 x 5.3 x 2.3 cm. Bilateral lower extremity edema. IMPRESSION: No findings of deep venous thrombosis in either lower extremity. Dictated by: Brandon Botello M.D. on 12/27/2024 at 14:47 Approved by: Brandon Botello M.D. on 12/27/2024 at 14:48 [facility] Narrative Medical decision making narrative: Patient complains of left greater than right ankle and foot swelling. She states over the past year she has had left greater than right ankle and foot swelling off and on but in the past 3 days it has worsened. No calf pain. No history of blood clot in the legs but she is on warfarin for history of pulmonary embolism and atrial fibrillation. Denies any history of CHF. She does wear compression stockings. She states she recently was on steroids in the past week. Is not on any diuretics. Knees to toes exposed. Patient denies any chest pain or shortness of breath. Denies any recent long travel immobilization or surgeries. MDM After history and exam, CBC CMP ultrasound bilateral legs, PT PTT INR, patient has no chest pain or shortness of breath. No EKG BNP or D-dimer indicated at this time. No chest x-ray. Differential considered: Includes but not limited to dependent edema CHF DVT SVT Medical records reviewed: No recent visit for this complaint Lab Test results independently reviewed as above. Pertinent findings: WBC 5.9 hemoglobin 12.3 sodium 137 potassium 3.8 INR 3.2 Imaging studies independently reviewed: Ultrasound bilateral legs, no DVT, there is a left Lin's cyst Consultations: None indicated at this time Re-evaluations: 4:29 p.m.. Updated patient results and Lin's cyst finding. This may explain why left greater than right swelling of the foot and ankle. Otherwise exam and laboratory studies imaging studies reassuring. No blood clot. Return precautions reviewed. She will follow up with primary care for possible diuretics and she will get new pressure stockings. Return precautions reviewed. She desires discharge home Discussion: Appropriate for discharge home. Return precautions reviewed. Patient no respiratory distress. She desires discharge home. Blood pressure improved at time of discharge. Diagnosis: Peripheral edema, Lin's cyst Discharge Plan Departure Patient Disposition: Home Clinical Impression: Lower extremity edema Lin's cyst of knee Qualifiers: Laterality: left Qualified Code(s): M71.22 - Synovial cyst of popliteal space [Lin], left knee Instructions: DI for Lin Cyst, DI for Peripheral Edema -- Bilateral Activity Restrictions/Additional Instructions: Your exam and laboratory studies and ultrasound studies are reassuring. No blood clots were seen in your legs. Please do see your family doctor for re-evaluation within a week and may need to start diuretic medication to reduce the swelling in your legs. Please do get new pressure stockings for your legs. Return if worse if any questions or concerns. Prescriptions: No Action cyclobenzaprine 10 mg tablet PO cyclobenzaprine 5 mg tablet PO isosorbide mononitrate 10 mg tablet 10 mg PO BID digoxin 250 mcg (0.25 mg) tablet 250 mcg PO DAILY fluoxetine 20 mg capsule 60 mg PO QAM ropinirole 5 mg tablet 5 mg PO ONCE PM levothyroxine 150 mcg tablet PO spironolactone 25 mg tablet PO amlodipine 5 mg tablet 5 mg PO DAILY metoprolol succinate 50 mg tablet extended release 24 hr 50 mg PO DAILY gabapentin 400 mg capsule 400 mg PO 3XD prednisone 10 mg tablets,dose pack See Rx Instructions .ROUTE .COMPLEX Qty: 21 0RF Rx Instructions: orally per package directions albuterol sulfate 90 mcg/actuation HFA aerosol inhaler 2 puff inhalation Q4-6H PRN (Reason: shortness of breath or wheezing) Qty: 6.7 0RF Referrals: Ron Blanton MD [Primary Care Provider, Internal Medicine] Stand Alone Forms: Patient Portal/API
--- NOTE | 2024-12-27 13:09 | DI.US.S_ITS ---
PROCEDURE: US PERIPH VENOUS LOW EXTREM BI INDICATIONS: PAIN AND SWELLING TECHNIQUE: Real-time imaging, as well as color and pulse Doppler interrogation, were performed of the deep veins of both legs from the inguinal ligament to the popliteal fossa, with documentation of the visualized calf veins. COMPARISON: None. FINDINGS: Right: The common femoral, femoral, popliteal, and the visualized calf veins are normally compressible, and free of intraluminal thrombus. Color and pulse Doppler demonstrate normal phasic intravascular flow. There is normal augmentation response to distal compression maneuver. Left: The common femoral, femoral, popliteal, and the visualized calf veins are normally compressible, and free of intraluminal thrombus. Color and pulse Doppler demonstrate normal phasic intravascular flow. There is normal augmentation response to distal compression maneuver. Left Lin's cyst measuring 5.4 x 5.3 x 2.3 cm. Bilateral lower extremity edema. IMPRESSION: No findings of deep venous thrombosis in either lower extremity. Dictated by: Brandon Botello M.D. on 12/27/2024 at 14:47 Approved by: Brandon Botello M.D. on 12/27/2024 at 14:48
[2024-12-27 15:23] LABS: Add Manual Diff / Slide Review NO; Hematocrit 37.3 % (36-46); Hemoglobin 12.3 g/dL (12.0-16.0); Lymphocytes Absolute Auto 1300 /uL (1100-4500); Mean Corpuscular HGB Conc 33.0 % (30-36); Mean Corpuscular Hemoglobin 28.5 PG (26-34); Mean Corpuscular Volume 86.3 fL (80-100); Platelet Count 274 X10^3/uL (150-400)
[2024-12-27 15:29] LABS: INR 3.2 (0.9-1.3); Prothrombin Time 35.3 SECONDS (9.4-12.5)
[2024-12-27 15:32] LABS: PTT Partial Thromboplastin Tim 45 SECONDS (25.1-36.5)
[2024-12-27 15:36] LABS: Alanine Aminotransferase 28 IU/L (<35); Albumin 4.2 g/dL (3.5-5.0); Albumin Globulin Ratio 1.4 (1.0-2.8); Alkaline Phosphatase 69 U/L (38-126); Blood Urea Nitrogen 14 mg/dL (7-17); Calcium 9.5 mg/dL (8.4-10.2); Carbon Dioxide 29 mmol/L (22-32); Chloride 103 mmol/L (98-107); Estimated Glomerular Filt Rate > 60 mL/min (>60); Globulin 2.9 g/dL (1.7-4.1); Glucose 91 mg/dL (70-99); HEMOLYSIS < 15 (0-50); Potassium 3.8 mmol/L (3.4-5.1); Sodium 137 mmol/L (137-145); Total Protein 7.1 g/dL (6.3-8.2)
[2024-12-27 16:14] VITALS: BP 142/77; PULSE 67; RESP 17; O2SAT 96
== END 2024-12-27 16:33 | disposition home or self-care (01) ==
PROVIDERS: Emergency Provider Emergency Medicine; PCP Internal Medicine
DX: R60.0 Localized edema (principal); M71.22 Synovial cyst of popliteal space [Baker], left knee; Z86.711 Personal history of pulmonary embolism; Z79.01 Long term (current) use of anticoagulants
CPT/HCPCS: 80053; 85025; 85610; 85730; 93970; 99281; 99283; 99284